=== PATIENT | female | born 1990 | race Caucasian/White ===

== ENCOUNTER 2017-04-14 21:26 | Emergency (ER) | payer OTHER ==
[2017-04-14 21:45] LABS: BASOPHIL 0.2 % (0-2); EOSINOPHIL 1.4 % (0-5); HCT 41.5 % (37.0-47.0); HGB 14.8 g/dl (12.5-16.0); LYMPHOCYTE 25.4 % (15-48); MCH 29.6 pg (25.0-31.0); MCHC 35.7 g/dL (32.0-36.0); MONOCYTE 5.5 % (0-12); MPV 9.5 fL (6.0-9.5); NEUTROPHIL 67.5 % (41-80); PLT 441 K/uL (150-400); RDW 12.4 % (11.5-14.0); WBC 11.9 K/uL (4.0-10.5)
[2017-04-14 21:59] LABS: ALBUMIN 4.5 g/dL (3.5-5.0); BILIRUBIN - TOTAL 0.7 mg/dL (0.1-1.0); CREATININE 0.8 mg/dL (0.5-1.0); GLOBULIN (CALCULATION) 3.1 g/dL (2.2-4.2); POTASSIUM 3.1 mmol/L (3.5-5.1); TOTAL PROTEIN 7.6 g/dL (6.4-8.3)
[2017-04-14 22:58] LABS: BILIRUBIN NEGATIVE (NEGATIVE); BLOOD NEGATIVE Ery/uL (NEGATIVE); CLARITY CLEAR (CLEAR); COLOR YELLOW (YELLOW); GLUCOSE (U) NORMAL (NORMAL); KETONE (U) 1+ (SMALL) mg/dL (NEGATIVE); LEUKOCYTES 2+ Leu/uL (NEGATIVE); NITRITE NEGATIVE (NEGATIVE); PROTEIN TRACE (LOW) mg/dL (NEGATIVE); SPECIFIC GRAVITY 1.015 (1.001-1.030); UROBILINOGEN 0.2 mg/dL (0.2-1.0); pH 6.5 (5.0-9.0)
[2017-04-14 23:17] LABS: BACTERIA 3+; MUCOUS TRACE
== END 2017-04-15 01:00 | disposition home or self-care (01) ==
LOC: FER 21:26
PROVIDERS: Emergency Medicine Emergency Medical Services
DX: S06.0X9A Concussion with loss of consciousness of unspecified duration, initial encounter (principal); N39.0 Urinary tract infection, site not specified; V86.99XA Unspecified occupant of other special all-terrain or other off-road motor vehicle injured in nontraffic accident, initial encounter
CPT/HCPCS: 36415; 70450; 72125; 80053; 81001; 85025; J2270; J2405; J2765; Q9967